=== PATIENT | female | born 1945 | race Caucasian/White ===

== ENCOUNTER → 2016-10-24 | Outpatient (CLI) | payer MEDICARE, BC ==
[~2016-10-24] MED LIST: ALBU1.25 NEB; ALBU2.5V NPPB; ALBU8.5H3 INH; ALBU90AE INH; AMLO5TAB2 PO; ASPI-515 PO; ATEN100T PO; ATEN25TA PO; ATEN50TA41 PO; AZIT500T PO; CEFD300C37 PO; CITA20TA9 PO; DOXY100T PO; FLUT1BLS INH; HYDR12.58 PO; HYDR25TA6 PO; IPRA3AMP NPPB; METO50TA82 PO; PANT40TA3 PO; PRED10TA PO; PRED5TAB PO; REGADENOSON 0.4 MG/5 ML SYRINGE ONE; TIOT18CA INH; TRAZ100T15 PO
== END | disposition home or self-care (01) ==
LOC: CFH 08:13
PROVIDERS: ATTEND Internal Medicine Cardiovascular Disease
DX: R94.31 Abnormal electrocardiogram [ECG] [EKG] (principal); R06.02 Shortness of breath
CPT/HCPCS: 78452; 93017; A9502; J2785

== ENCOUNTER 2016-11-10 22:17 | Inpatient (IN) | payer MEDICARE, BC ==
[~2016-11-10] VITALS: Ht 162.6 cm; Wt 95.8 kg
[~2016-11-10 22:17] MED LIST changes: -REGADENOSON 0.4 MG/5 ML SYRINGE ONE
[2016-11-10] MEDS ORDERED: IPRATROPIUM 0.5 MG/2.5 ML INHA NPPB SCH (22:30)
[2016-11-10] MEDS ORDERED: ALBUTEROL 0.5%, 20ML NPPB SCH (22:30)
[2016-11-10] MEDS ORDERED: SODIUM CHLORIDE FLUSH 10ML SYR IVF ONE (22:30)
[2016-11-10] MEDS ORDERED: PLEASE ENTER HEIGHT AND WEIGHT MC SCH (22:30)
[2016-11-10] MEDS ORDERED: ONDANSETRON 2MG/ML, 2ML IVP ONE (22:30)
[2016-11-10] MEDS ORDERED: NITROGLYCERIN OINT 2%, 1GM TP ONE ×2 (22:30→22:42)
[2016-11-10] MEDS ORDERED: methylPREDNISolone SOD SUCC 125 MG/2 ML IVP ONE (22:30)
[2016-11-10] MEDS ORDERED: PANT40TA5 PO (22:40)
[2016-11-10] MEDS ORDERED: [UNRECOGNIZED DRUG - OTHER] INH (22:40)
[2016-11-10] MEDS ORDERED: LOSA50TA6 PO (22:40)
[2016-11-10] MEDS ORDERED: ALBUTEROL 0.5%, 20ML ONE (22:41)
[2016-11-10] MEDS ORDERED: ONDANSETRON 2MG/ML, 2ML ONE (22:42)
[2016-11-10] MEDS ORDERED: methylPREDNISolone SOD SUCC 125 MG/2 ML ONE (22:42)
[2016-11-10 22:54] LABS: ABG COLLECTION SITE RIGHT RADIAL; COLLATERAL CIRCULATION TESTING NORMAL
[2016-11-10 23:12] LABS: ASPARTATE AMINO TRANSFERASE 17 U/L (15-37); BLOOD UREA NITROGEN 17 mg/dL (7-18)
[2016-11-10] MEDS ORDERED: CEFTRIAXONE PMX 1GM/50ML 50 ML ONE (23:15)
[2016-11-10 23:20] LABS: IS PT STATUS REG ER OR PRE ER? YES
[2016-11-10] MEDS ORDERED: CEFTRIAXONE PMX 1GM/50ML 50 ML IV ONE (23:30)
[2016-11-10] MEDS ORDERED: AZITHROMYCIN 500 MG in SODIUM CHLORIDE 0.9% 250 ML IVPB ONE (23:30)
[2016-11-10] MEDS ORDERED: SODIUM CHLORIDE 0.9% 1,000ML IVBOLUS ONE (23:30)
[2016-11-11] MEDS: ALBUTEROL/IPRATROPIUM 2.5MG/0.5MG, 3 ML NPPB SCH ×6 (01:30→22:01)
[2016-11-11] MEDS ORDERED: ALBUTEROL/IPRATROPIUM 2.5MG/0.5MG, 3 ML NPPB PRN (01:30)
[2016-11-11 01:57] VITALS: BP 165/57
[2016-11-11] MEDS: ENOXAPARIN 40 MG/0.4 ML SQ SCH (03:08)
[2016-11-11] MEDS: methylPREDNISolone SOD SUCC 125 MG/2 ML IVPush SCH ×4 (03:08→18:45)
[2016-11-11 04:21] LABS: ABG COLLECTION SITE RIGHT RADIAL; COLLATERAL CIRCULATION TESTING NORMAL
[2016-11-11 04:33] LABS: BLOOD UREA NITROGEN 19 mg/dL (7-18)
[2016-11-11 04:37] LABS: ASPARTATE AMINO TRANSFERASE 14 U/L (15-37)
[2016-11-11 04:48] VITALS: BP 110/43
[2016-11-11 04:54] LABS: IS PT STATUS REG ER OR PRE ER? NO
[2016-11-11] MEDS: METOPROLOL TARTRATE 50 MG TABLET PO SCH ×2 (06:08→17:47)
[2016-11-11] MEDS: ASPIRIN 81 MG TABLET EC PO SCH (09:21)
[2016-11-11] MEDS: PANTOPROZOLE 40MG TABLET PO SCH (09:21)
[2016-11-11] MEDS: LOSARTAN 50MG TABLET PO SCH (09:21)
[2016-11-11] MEDS: AMLODIPINE 5 MG TABLET PO SCH ×2 (09:21→20:24)
[2016-11-11 10:18] LABS: IS PT STATUS REG ER OR PRE ER? NO
[2016-11-11] MEDS ORDERED: FURO-92 PO (12:20)
[2016-11-11] MEDS ORDERED: POTA10TA5 PO (12:32)
[2016-11-11] MEDS: DOXYCYCLINE 100 MG in DEXTROSE 5% 250 ML IV SCH (13:13)
[2016-11-11] MEDS: CITALOPRAM 20 MG TABLET PO SCH (20:24)
[2016-11-11] MEDS: TRAZODONE 100MG TABLET PO SCH (20:30)
[2016-11-12] MEDS: DOXYCYCLINE 100 MG in DEXTROSE 5% 250 ML IV SCH ×2 (01:44→17:21)
[2016-11-12] MEDS: methylPREDNISolone SOD SUCC 125 MG/2 ML IVPush SCH ×2 (01:44→06:24)
[2016-11-12] MEDS: ENOXAPARIN 40 MG/0.4 ML SQ SCH (01:44)
[2016-11-12] MEDS: ALBUTEROL/IPRATROPIUM 2.5MG/0.5MG, 3 ML NPPB SCH ×6 (03:15→22:15)
[2016-11-12 04:00] VITALS: BP 129/56
[2016-11-12] MEDS: METOPROLOL TARTRATE 50 MG TABLET PO SCH ×2 (06:24→21:14)
[2016-11-12] MEDS: PANTOPROZOLE 40MG TABLET PO SCH (08:01)
[2016-11-12] MEDS: AMLODIPINE 5 MG TABLET PO SCH ×2 (08:01→22:44)
[2016-11-12] MEDS: LOSARTAN 50MG TABLET PO SCH (08:01)
[2016-11-12] MEDS: GUAIFENESIN 200 MG TABLET PO PRN (08:01)
[2016-11-12] MEDS: ASPIRIN 81 MG TABLET EC PO SCH (08:02)
[2016-11-12] MEDS: POTASSIUM CHLORIDE 10 MEQ TABLET.ER PO SCH (09:29)
[2016-11-12] MEDS: FUROSEMIDE 40 MG TABLET PO SCH (09:29)
[2016-11-12 14:39] VITALS: BP 146/70
[2016-11-12] MEDS: methylPREDNISolone SOD SUCC 40 MG/ML IVPush SCH ×2 (17:21→23:32)
[2016-11-12 18:43] VITALS: BP 151/66
[2016-11-12 22:41] VITALS: BP 154/76
[2016-11-12] MEDS: TRAZODONE 100MG TABLET PO SCH (22:44)
[2016-11-12] MEDS: CITALOPRAM 20 MG TABLET PO SCH (22:44)
[2016-11-13] MEDS: ALBUTEROL/IPRATROPIUM 2.5MG/0.5MG, 3 ML NPPB SCH ×6 (02:00→22:45)
[2016-11-13 02:04] VITALS: BP 149/74
[2016-11-13] MEDS: DOXYCYCLINE 100 MG in DEXTROSE 5% 250 ML IV SCH ×2 (04:17→16:07)
[2016-11-13] MEDS: ENOXAPARIN 40 MG/0.4 ML SQ SCH (04:18)
[2016-11-13 05:52] VITALS: BP 147/80
[2016-11-13] MEDS: METOPROLOL TARTRATE 50 MG TABLET PO SCH ×2 (05:54→18:06)
[2016-11-13 06:02] LABS: BLOOD UREA NITROGEN 23 mg/dL (7-18)
[2016-11-13 07:53] VITALS: BP 154/74
[2016-11-13] MEDS: methylPREDNISolone SOD SUCC 40 MG/ML IVPush SCH (09:14)
[2016-11-13] MEDS: FUROSEMIDE 40 MG TABLET PO SCH (09:26)
[2016-11-13] MEDS: POTASSIUM CHLORIDE 10 MEQ TABLET.ER PO SCH (09:26)
[2016-11-13] MEDS: ASPIRIN 81 MG TABLET EC PO SCH (09:26)
[2016-11-13] MEDS: LOSARTAN 50MG TABLET PO SCH (09:28)
[2016-11-13] MEDS: PANTOPROZOLE 40MG TABLET PO SCH (09:28)
[2016-11-13] MEDS: AMLODIPINE 5 MG TABLET PO SCH ×2 (09:28→20:08)
[2016-11-13] MEDS: GUAIFENESIN/COD200MG-20MG/10ML LIQUID PO PRN ×3 (13:22→22:05)
[2016-11-13 13:55] VITALS: BP 156/73
[2016-11-13] MEDS: CITALOPRAM 20 MG TABLET PO SCH (20:08)
[2016-11-13] MEDS: TRAZODONE 100MG TABLET PO SCH (20:08)
[2016-11-14] MEDS: ALBUTEROL/IPRATROPIUM 2.5MG/0.5MG, 3 ML NPPB SCH ×6 (02:15→22:00)
[2016-11-14] MEDS: DOXYCYCLINE 100 MG in DEXTROSE 5% 250 ML IV SCH ×2 (02:30→15:52)
[2016-11-14] MEDS: GUAIFENESIN/COD200MG-20MG/10ML LIQUID PO PRN ×2 (02:30→21:11)
[2016-11-14] MEDS: ENOXAPARIN 40 MG/0.4 ML SQ SCH (02:30)
[2016-11-14 02:35] VITALS: BP 136/75
[2016-11-14] MEDS: METOPROLOL TARTRATE 50 MG TABLET PO SCH ×2 (05:49→18:08)
[2016-11-14 07:05] VITALS: BP 148/76
[2016-11-14] MEDS: POTASSIUM CHLORIDE 10 MEQ TABLET.ER PO SCH (09:30)
[2016-11-14] MEDS: ASPIRIN 81 MG TABLET EC PO SCH (09:30)
[2016-11-14] MEDS: LOSARTAN 50MG TABLET PO SCH (09:30)
[2016-11-14] MEDS: AMLODIPINE 5 MG TABLET PO SCH ×2 (09:31→21:11)
[2016-11-14] MEDS: FUROSEMIDE 40 MG TABLET PO SCH (09:31)
[2016-11-14] MEDS: PANTOPROZOLE 40MG TABLET PO SCH (09:32)
[2016-11-14 12:55] VITALS: BP 137/79
[2016-11-14] MEDS: CITALOPRAM 20 MG TABLET PO SCH (21:11)
[2016-11-14] MEDS: TRAZODONE 100MG TABLET PO SCH (21:11)
[2016-11-15] MEDS: ALBUTEROL/IPRATROPIUM 2.5MG/0.5MG, 3 ML NPPB SCH ×6 (02:00→22:40)
[2016-11-15 03:27] VITALS: BP 142/65
[2016-11-15] MEDS: DOXYCYCLINE 100 MG in DEXTROSE 5% 250 ML IV SCH ×2 (03:42→16:10)
[2016-11-15] MEDS: ENOXAPARIN 40 MG/0.4 ML SQ SCH (03:43)
[2016-11-15] MEDS: GUAIFENESIN/COD200MG-20MG/10ML LIQUID PO PRN ×2 (05:05→21:40)
[2016-11-15] MEDS: METOPROLOL TARTRATE 50 MG TABLET PO SCH ×2 (05:14→18:48)
[2016-11-15 08:00] VITALS: BP 140/80
[2016-11-15] MEDS: AMLODIPINE 5 MG TABLET PO SCH ×2 (09:27→20:54)
[2016-11-15] MEDS: POTASSIUM CHLORIDE 10 MEQ TABLET.ER PO SCH (09:27)
[2016-11-15] MEDS: LOSARTAN 50MG TABLET PO SCH (09:27)
[2016-11-15] MEDS: ASPIRIN 81 MG TABLET EC PO SCH (09:27)
[2016-11-15] MEDS: GUAIFENESIN 200 MG TABLET PO PRN (09:27)
[2016-11-15] MEDS: FUROSEMIDE 40 MG TABLET PO SCH (09:27)
[2016-11-15] MEDS: PANTOPROZOLE 40MG TABLET PO SCH (09:27)
[2016-11-15 19:12] VITALS: BP 148/68
[2016-11-15] MEDS: TRAZODONE 100MG TABLET PO SCH (20:54)
[2016-11-15] MEDS: CITALOPRAM 20 MG TABLET PO SCH (20:54)
[2016-11-16] MEDS: DOXYCYCLINE 100 MG in DEXTROSE 5% 250 ML IV SCH (02:59)
[2016-11-16 04:00] VITALS: BP 138/84
[2016-11-16] MEDS: METOPROLOL TARTRATE 50 MG TABLET PO SCH (05:47)
[2016-11-16 06:50] VITALS: BP 161/77
[2016-11-16] MEDS: LOSARTAN 50MG TABLET PO SCH (07:49)
[2016-11-16] MEDS: AMLODIPINE 5 MG TABLET PO SCH (07:49)
[2016-11-16] MEDS: PANTOPROZOLE 40MG TABLET PO SCH (07:49)
[2016-11-16] MEDS: POTASSIUM CHLORIDE 10 MEQ TABLET.ER PO SCH (07:50)
[2016-11-16] MEDS: ASPIRIN 81 MG TABLET EC PO SCH (07:50)
[2016-11-16] MEDS: FUROSEMIDE 40 MG TABLET PO SCH (07:50)
[2016-11-16] MEDS: ALBUTEROL/IPRATROPIUM 2.5MG/0.5MG, 3 ML NPPB SCH ×2 (08:00→11:50)
[2016-11-16] MEDS ORDERED: DOXYCYCLINE 100MG TABLET PO SCH (09:00)
[2016-11-16] MEDS: ENOXAPARIN 40 MG/0.4 ML SQ SCH (10:01)
[2016-11-16] MEDS ORDERED: DOXY100T PO (11:21)
[2016-11-16] MEDS ORDERED: ALPR0.25 PO (15:10)
[2016-11-16] MEDS ORDERED: PRED10TA PO (15:13)
== END 2016-11-16 15:30 | disposition home health service (06) | DRG 189 ==
LOC: ED 22:46 → EDIP 23:28 → CCU 11-11 01:43 → 4WST 11-12 14:47 → DCLOUNGE 11-16 14:30
PROVIDERS: ADMIT Internal Medicine; ATTEND Internal Medicine
PROC: 5A09357 Assistance with Respiratory Ventilation, Less than 24 Consecutive Hours, Continuous Positive Airway Pressure (ICD-10-PCS; principal; 2016-11-10)
DX: J96.21 Acute and chronic respiratory failure with hypoxia (principal); J44.1 Chronic obstructive pulmonary disease with (acute) exacerbation; E87.2 Acidosis; J44.0 Chronic obstructive pulmonary disease with (acute) lower respiratory infection; J20.9 Acute bronchitis, unspecified; J96.22 Acute and chronic respiratory failure with hypercapnia; E66.9 Obesity, unspecified; F17.200 Nicotine dependence, unspecified, uncomplicated; F32.9 Major depressive disorder, single episode, unspecified; F51.04 Psychophysiologic insomnia; I10 Essential (primary) hypertension; Z51.5 Encounter for palliative care; Z68.36 Body mass index [BMI] 36.0-36.9, adult; Z83.3 Family history of diabetes mellitus; Z99.81 Dependence on supplemental oxygen; Z87.01 Personal history of pneumonia (recurrent)
CPT/HCPCS: 36415; 36600; 71010; 80048; 80053; 82803; 83605; 83880; 84484; 85025; 85610; 85730; 87040; 87081; 93005; 94640; 94644; 96365; 96375; J0456; J0696; J1650; J2405; J7060; J7620; J2920; J2930; J7030; J7050; J7512

== ENCOUNTER 2017-01-06 17:39 | Emergency (ER) | payer MEDICARE, BC ==
[~2017-01-06] VITALS: Ht 162.6 cm; Wt 90.0 kg
[~2017-01-06 17:39] MED LIST changes: -ALBU8.5H3 INH; +ALBU8.5H8 INH; +ALPR0.25 PO; +FURO-92 PO; +LOSA50TA6 PO; +PANT40TA5 PO; +POTA10TA5 PO; +[UNRECOGNIZED DRUG - OTHER] INH
[2017-01-06] MEDS ORDERED: ALBUTEROL/IPRATROPIUM 2.5MG/0.5MG, 3 ML ONE (17:47)
[2017-01-06] MEDS: ALBUTEROL/IPRATROPIUM 2.5MG/0.5MG, 3 ML NPPB SCH (17:51)
[2017-01-06 18:00] LABS: HEMATOCRIT 40.7 % (34.6-47.8); HEMOGLOBIN 13.3 g/dL (11.7-16.4); WHITE BLOOD COUNT 10.8 x10^3/uL (3.4-10)
[2017-01-06] MEDS ORDERED: SODIUM CHLORIDE FLUSH 10ML SYR IVF ONE (18:00)
[2017-01-06] MEDS ORDERED: methylPREDNISolone SOD SUCC 125 MG/2 ML IVP ONE (18:00)
[2017-01-06] MEDS ORDERED: methylPREDNISolone SOD SUCC 125 MG/2 ML ONE (18:02)
[2017-01-06 18:14] LABS: BLOOD UREA NITROGEN 15 mg/dL (7-18)
[2017-01-06 18:19] LABS: ASPARTATE AMINO TRANSFERASE 13 U/L (15-37); IS PT STATUS REG ER OR PRE ER? YES
[2017-01-06 18:57] VITALS: BP 128/87
== END 2017-01-06 19:26 | disposition home or self-care (01) ==
LOC: ED 19:20
DX: J44.1 Chronic obstructive pulmonary disease with (acute) exacerbation (principal); I10 Essential (primary) hypertension; Z79.82 Long term (current) use of aspirin
CPT/HCPCS: 36415; 71010; 80053; 83880; 84484; 85025; 93005; 94640; 96374; 99285; J2930; J7620

== ENCOUNTER 2017-01-21 09:15 | Inpatient (IN) | payer MEDICARE, BC ==
[~2017-01-21] VITALS: Ht 162.6 cm; Wt 94.9 kg
[2017-01-21] MEDS: ALBUTEROL/IPRATROPIUM 2.5MG/0.5MG, 3 ML NPPB SCH ×5 (10:06→23:10)
[2017-01-21] MEDS ORDERED: ALBUTEROL/IPRATROPIUM 2.5MG/0.5MG, 3 ML ONE ×2 (10:06→14:41)
[2017-01-21] MEDS ORDERED: methylPREDNISolone SOD SUCC 125 MG/2 ML ONE (10:22)
[2017-01-21 10:25] LABS: HEMATOCRIT 39.7 % (34.6-47.8); HEMOGLOBIN 13.2 g/dL (11.7-16.4); WHITE BLOOD COUNT 10.3 x10^3/uL (3.4-10)
[2017-01-21] MEDS ORDERED: methylPREDNISolone SOD SUCC 125 MG/2 ML IVP ONE (10:30)
[2017-01-21] MEDS ORDERED: SODIUM CHLORIDE FLUSH 10ML SYR IVF ONE (10:30)
[2017-01-21] MEDS ORDERED: MAGNESIUM SULFATE PMX 2GM/50ML 50 ML IV ONE (10:30)
[2017-01-21 10:36] LABS: BLOOD UREA NITROGEN 12 mg/dL (7-18)
[2017-01-21 10:42] LABS: IS PT STATUS REG ER OR PRE ER? YES
[2017-01-21 15:16] VITALS: BP 146/72
[2017-01-21] MEDS ORDERED: HYDROcodone/APAP 5/325 TABLET PO PRN (16:30)
[2017-01-21] MEDS ORDERED: morphine SULFATE 10 MG/ML, 1ML IVPush PRN (16:30)
[2017-01-21] MEDS ORDERED: ONDANSETRON 2MG/ML, 2ML IVPush PRN (16:30)
[2017-01-21] MEDS ORDERED: hydrALAzine 20 MG/ML, 1ML IVPush PRN (16:30)
[2017-01-21] MEDS ORDERED: ACETAMINOPHEN 325 MG TABLET PO PRN (16:30)
[2017-01-21] MEDS: INSULIN ASPART 100 UNITS/ML, PEN SQ-INSULIN SCH ×2 (16:30→20:58)
[2017-01-21] MEDS: ENOXAPARIN 40 MG/0.4 ML SQ SCH (17:38)
[2017-01-21] MEDS: CEFTRIAXONE PMX 2GM/50ML 50 ML IV SCH (17:38)
[2017-01-21] MEDS: METOPROLOL TARTRATE 50 MG TABLET PO SCH (18:33)
[2017-01-21] MEDS: methylPREDNISolone SOD SUCC 125 MG/2 ML IVPush SCH (18:33)
[2017-01-21] MEDS: FUROSEMIDE 40 MG/4 ML IV SCH (18:33)
[2017-01-21 18:38] VITALS: BP 161/75
[2017-01-21] MEDS: TRAZODONE 100MG TABLET PO SCH (20:55)
[2017-01-21] MEDS: DOXYCYCLINE 100MG TABLET PO SCH (20:55)
[2017-01-21] MEDS: CITALOPRAM 20 MG TABLET PO SCH (20:55)
[2017-01-21] MEDS ORDERED: AMLODIPINE 5 MG TABLET PO SCH (21:00)
[2017-01-22] MEDS: methylPREDNISolone SOD SUCC 125 MG/2 ML IVPush SCH ×4 (00:23→22:57)
[2017-01-22 00:52] VITALS: BP 158/69
[2017-01-22] MEDS: ALBUTEROL/IPRATROPIUM 2.5MG/0.5MG, 3 ML NPPB SCH ×6 (02:44→22:40)
[2017-01-22] MEDS: METOPROLOL TARTRATE 50 MG TABLET PO SCH ×2 (05:19→18:29)
[2017-01-22 05:40] LABS: BLOOD UREA NITROGEN 16 mg/dL (7-18)
[2017-01-22 07:12] VITALS: BP 150/72
[2017-01-22] MEDS: INSULIN ASPART 100 UNITS/ML, PEN SQ-INSULIN SCH ×4 (08:37→21:00)
[2017-01-22] MEDS: FUROSEMIDE 40 MG/4 ML IV SCH (08:41)
[2017-01-22] MEDS: ASPIRIN 81 MG TABLET EC PO SCH (08:43)
[2017-01-22] MEDS: LOSARTAN 50MG TABLET PO SCH (08:43)
[2017-01-22] MEDS: PANTOPROZOLE 40MG TABLET PO SCH (08:44)
[2017-01-22] MEDS: DOXYCYCLINE 100MG TABLET PO SCH ×2 (08:44→22:58)
[2017-01-22] MEDS: POTASSIUM CHLORIDE 20 MEQ TAB.ER.PRT PO SCH (08:44)
[2017-01-22] MEDS ORDERED: FUROSEMIDE 40 MG TABLET PO SCH (09:00)
[2017-01-22 12:10] VITALS: BP 133/65
[2017-01-22] MEDS: CEFTRIAXONE PMX 2GM/50ML 50 ML IV SCH (17:11)
[2017-01-22] MEDS: ENOXAPARIN 40 MG/0.4 ML SQ SCH (17:12)
[2017-01-22] MEDS: FUROSEMIDE 40 MG TABLET PO SCH (18:30)
[2017-01-22 21:11] VITALS: BP 151/71
[2017-01-22] MEDS: TRAZODONE 100MG TABLET PO SCH (22:58)
[2017-01-22] MEDS: CITALOPRAM 20 MG TABLET PO SCH (22:58)
[2017-01-23] MEDS: ALBUTEROL/IPRATROPIUM 2.5MG/0.5MG, 3 ML NPPB SCH ×6 (02:20→23:40)
[2017-01-23 03:52] VITALS: BP 179/81
[2017-01-23] MEDS: methylPREDNISolone SOD SUCC 125 MG/2 ML IVPush SCH ×4 (04:02→22:40)
[2017-01-23 06:17] LABS: BLOOD UREA NITROGEN 27 mg/dL (7-18)
[2017-01-23 06:27] VITALS: BP 161/70
[2017-01-23] MEDS: METOPROLOL TARTRATE 50 MG TABLET PO SCH ×2 (06:27→18:37)
[2017-01-23 07:10] VITALS: BP 165/70
[2017-01-23] MEDS: FUROSEMIDE 40 MG TABLET PO SCH ×2 (08:10→17:18)
[2017-01-23] MEDS: LOSARTAN 50MG TABLET PO SCH (08:10)
[2017-01-23] MEDS: DOXYCYCLINE 100MG TABLET PO SCH ×2 (08:11→20:44)
[2017-01-23] MEDS: PANTOPROZOLE 40MG TABLET PO SCH (08:11)
[2017-01-23] MEDS: POTASSIUM CHLORIDE 20 MEQ TAB.ER.PRT PO SCH (08:11)
[2017-01-23] MEDS: ASPIRIN 81 MG TABLET EC PO SCH (08:11)
[2017-01-23] MEDS: INSULIN ASPART 100 UNITS/ML, PEN SQ-INSULIN SCH ×4 (08:18→20:49)
[2017-01-23 12:33] VITALS: BP 160/76
[2017-01-23] MEDS: ENOXAPARIN 40 MG/0.4 ML SQ SCH (17:18)
[2017-01-23] MEDS: CEFTRIAXONE PMX 2GM/50ML 50 ML IV SCH (17:18)
[2017-01-23 18:30] VITALS: BP 147/75
[2017-01-23] MEDS: TRAZODONE 100MG TABLET PO SCH (20:44)
[2017-01-23] MEDS: CITALOPRAM 20 MG TABLET PO SCH (20:44)
[2017-01-24] MEDS: ALBUTEROL/IPRATROPIUM 2.5MG/0.5MG, 3 ML NPPB SCH ×6 (03:15→22:25)
[2017-01-24 03:22] VITALS: BP 138/62
[2017-01-24] MEDS: methylPREDNISolone SOD SUCC 125 MG/2 ML IVPush SCH ×4 (05:02→22:36)
[2017-01-24] MEDS: METOPROLOL TARTRATE 50 MG TABLET PO SCH ×2 (05:03→17:41)
[2017-01-24] MEDS: INSULIN ASPART 100 UNITS/ML, PEN SQ-INSULIN SCH ×4 (07:00→20:56)
[2017-01-24 07:15] VITALS: BP 167/80
[2017-01-24] MEDS: FUROSEMIDE 40 MG TABLET PO SCH ×2 (09:11→17:41)
[2017-01-24] MEDS: LOSARTAN 50MG TABLET PO SCH (09:12)
[2017-01-24] MEDS: ASPIRIN 81 MG TABLET EC PO SCH (09:12)
[2017-01-24] MEDS: POTASSIUM CHLORIDE 20 MEQ TAB.ER.PRT PO SCH (09:12)
[2017-01-24] MEDS: DOXYCYCLINE 100MG TABLET PO SCH ×2 (09:13→20:42)
[2017-01-24] MEDS: PANTOPROZOLE 40MG TABLET PO SCH (09:13)
[2017-01-24 12:25] VITALS: BP 163/73
[2017-01-24] MEDS: ENOXAPARIN 40 MG/0.4 ML SQ SCH (17:35)
[2017-01-24] MEDS: CEFTRIAXONE PMX 2GM/50ML 50 ML IV SCH (17:40)
[2017-01-24 19:42] VITALS: BP 159/70
[2017-01-24] MEDS: TRAZODONE 100MG TABLET PO SCH (20:42)
[2017-01-24] MEDS: CITALOPRAM 20 MG TABLET PO SCH (20:42)
[2017-01-25] MEDS: ALBUTEROL/IPRATROPIUM 2.5MG/0.5MG, 3 ML NPPB SCH ×6 (03:00→20:07)
[2017-01-25 04:10] VITALS: BP 151/73
[2017-01-25] MEDS: methylPREDNISolone SOD SUCC 125 MG/2 ML IVPush SCH ×4 (05:04→22:10)
[2017-01-25] MEDS: METOPROLOL TARTRATE 50 MG TABLET PO SCH ×2 (05:04→18:00)
[2017-01-25 05:41] LABS: BLOOD UREA NITROGEN 38 mg/dL (7-18)
[2017-01-25] MEDS: INSULIN ASPART 100 UNITS/ML, PEN SQ-INSULIN SCH ×4 (07:00→22:07)
[2017-01-25 07:06] VITALS: BP 170/76
[2017-01-25] MEDS: FUROSEMIDE 40 MG TABLET PO SCH ×2 (09:27→18:08)
[2017-01-25] MEDS: LOSARTAN 50MG TABLET PO SCH (09:28)
[2017-01-25] MEDS: PANTOPROZOLE 40MG TABLET PO SCH (09:28)
[2017-01-25] MEDS: POTASSIUM CHLORIDE 20 MEQ TAB.ER.PRT PO SCH (09:28)
[2017-01-25] MEDS: DOXYCYCLINE 100MG TABLET PO SCH ×2 (09:28→22:07)
[2017-01-25] MEDS: ASPIRIN 81 MG TABLET EC PO SCH (09:28)
[2017-01-25] MEDS: GUAIFENESIN 200 MG TABLET PO SCH ×2 (13:56→22:07)
[2017-01-25 15:07] VITALS: BP 167/74
[2017-01-25] MEDS: ENOXAPARIN 40 MG/0.4 ML SQ SCH (18:08)
[2017-01-25] MEDS: CEFTRIAXONE PMX 2GM/50ML 50 ML IV SCH (18:08)
[2017-01-25 20:45] VITALS: BP 163/73
[2017-01-25] MEDS: TRAZODONE 100MG TABLET PO SCH (22:07)
[2017-01-25] MEDS: CITALOPRAM 20 MG TABLET PO SCH (22:07)
[2017-01-26] MEDS: ALBUTEROL/IPRATROPIUM 2.5MG/0.5MG, 3 ML NPPB SCH ×7 (02:56→23:00)
[2017-01-26 03:31] VITALS: BP 156/76
[2017-01-26] MEDS: methylPREDNISolone SOD SUCC 125 MG/2 ML IVPush SCH ×4 (05:20→22:10)
[2017-01-26] MEDS: METOPROLOL TARTRATE 50 MG TABLET PO SCH ×2 (05:20→18:08)
[2017-01-26] MEDS: INSULIN ASPART 100 UNITS/ML, PEN SQ-INSULIN SCH ×4 (07:00→20:56)
[2017-01-26 07:31] VITALS: BP 179/82
[2017-01-26] MEDS: FUROSEMIDE 40 MG TABLET PO SCH ×2 (08:20→16:38)
[2017-01-26] MEDS: LOSARTAN 50MG TABLET PO SCH (08:20)
[2017-01-26] MEDS: DOXYCYCLINE 100MG TABLET PO SCH ×2 (08:20→20:41)
[2017-01-26] MEDS: POTASSIUM CHLORIDE 20 MEQ TAB.ER.PRT PO SCH (08:20)
[2017-01-26] MEDS: PANTOPROZOLE 40MG TABLET PO SCH (08:20)
[2017-01-26] MEDS: ASPIRIN 81 MG TABLET EC PO SCH (08:21)
[2017-01-26] MEDS: GUAIFENESIN 200 MG TABLET PO SCH ×3 (08:21→20:41)
[2017-01-26 13:46] VITALS: BP 154/81
[2017-01-26] MEDS: ENOXAPARIN 40 MG/0.4 ML SQ SCH (16:39)
[2017-01-26] MEDS: CEFTRIAXONE PMX 2GM/50ML 50 ML IV SCH (16:39)
[2017-01-26 19:53] VITALS: BP 138/74
[2017-01-26] MEDS: CITALOPRAM 20 MG TABLET PO SCH (20:41)
[2017-01-26] MEDS: TRAZODONE 100MG TABLET PO SCH (22:10)
[2017-01-27 00:58] VITALS: BP 159/84
[2017-01-27] MEDS ORDERED: ACETAMINOPHEN 325 MG TABLET PO PRN (01:30)
[2017-01-27] MEDS ORDERED: HYDROcodone/APAP 5/325 TABLET PO PRN (01:30)
[2017-01-27] MEDS ORDERED: morphine SULFATE 10 MG/ML, 1ML IVPush PRN (01:30)
[2017-01-27] MEDS ORDERED: ONDANSETRON 2MG/ML, 2ML IVPush PRN (01:30)
[2017-01-27] MEDS: ALBUTEROL/IPRATROPIUM 2.5MG/0.5MG, 3 ML NPPB SCH ×5 (02:00→15:02)
[2017-01-27] MEDS ORDERED: ALBUTEROL/IPRATROPIUM 2.5MG/0.5MG, 3 ML ONE (04:15)
[2017-01-27] MEDS: methylPREDNISolone SOD SUCC 125 MG/2 ML IVPush SCH ×2 (05:02→12:52)
[2017-01-27] MEDS: METOPROLOL TARTRATE 50 MG TABLET PO SCH (05:02)
[2017-01-27 06:52] VITALS: BP 182/78
[2017-01-27] MEDS: ASPIRIN 81 MG TABLET EC PO SCH (08:10)
[2017-01-27] MEDS: FUROSEMIDE 40 MG TABLET PO SCH (08:10)
[2017-01-27] MEDS: POTASSIUM CHLORIDE 20 MEQ TAB.ER.PRT PO SCH (08:10)
[2017-01-27] MEDS: LOSARTAN 50MG TABLET PO SCH (08:11)
[2017-01-27] MEDS: GUAIFENESIN 200 MG TABLET PO SCH (08:11)
[2017-01-27] MEDS: DOXYCYCLINE 100MG TABLET PO SCH (08:12)
[2017-01-27] MEDS: INSULIN ASPART 100 UNITS/ML, PEN SQ-INSULIN SCH ×2 (08:12→12:30)
[2017-01-27] MEDS: PANTOPROZOLE 40MG TABLET PO SCH (08:12)
[2017-01-27] MEDS ORDERED: TRAM50TA2 PO (11:48)
[2017-01-27] MEDS ORDERED: GUAI200T3 PO (11:48)
[2017-01-27] MEDS ORDERED: BUDE90AE INH (11:48)
[2017-01-27] MEDS ORDERED: PRED10TA PO (11:48)
[2017-01-27] MEDS ORDERED: DOXY100T PO (11:48)
[2017-01-27] MEDS ORDERED: CEFD300C37 PO (11:48)
[2017-01-27] MEDS ORDERED: POTA20TA6 PO (11:48)
[2017-01-27] MEDS ORDERED: FURO40TA6 PO (11:48)
[2017-01-27 12:30] VITALS: BP 159/74
== END 2017-01-27 15:00 | disposition home or self-care (01) | DRG 291 ==
LOC: ED 12:06 → EDIP 12:10 → 4EST 14:54
PROVIDERS: ADMIT Internal Medicine; ATTEND Internal Medicine
DX: I11.0 Hypertensive heart disease with heart failure (principal); J96.20 Acute and chronic respiratory failure, unspecified whether with hypoxia or hypercapnia; Z99.81 Dependence on supplemental oxygen; J44.1 Chronic obstructive pulmonary disease with (acute) exacerbation; I50.31 Acute diastolic (congestive) heart failure; E66.9 Obesity, unspecified; F32.9 Major depressive disorder, single episode, unspecified; Z87.891 Personal history of nicotine dependence; Z90.49 Acquired absence of other specified parts of digestive tract; Z90.710 Acquired absence of both cervix and uterus; Z68.35 Body mass index [BMI] 35.0-35.9, adult
CPT/HCPCS: 36415; 71010; 80048; 82040; 82962; 83036; 83880; 84484; 85025; 93005; 93306; 94640; 96365; 96366; 96375; J0696; J1650; J1815; J1940; J7620; J0360; J2930; J3475

== ENCOUNTER → 2017-04-18 | Outpatient (CLI) | payer MEDICARE, BC ==
[~2017-04-18] MED LIST changes: +BUDE90AE INH; +FURO40TA6 PO; +GUAI200T3 PO; +POTA20TA6 PO; +TRAM50TA2 PO
== END | disposition home or self-care (01) ==
LOC: CFH 15:55
PROVIDERS: ATTEND Internal Medicine
DX: R05 Cough (principal)
CPT/HCPCS: 71020

== ENCOUNTER → 2018-06-27 | Outpatient (CLI) | payer MEDICARE, BC ==
[~2018-06-27] MED LIST changes: +AMLO-150 PO; -AMLO5TAB2 PO; -HYDR12.58 PO; +HYDROCHLOROTH12.5 MG PO; -IPRA3AMP NPPB; +IPRA3AMP30 NPPB; +LOSA50TA14 PO; -LOSA50TA6 PO; +OMNIPAQUE 350 MG/ML, 75ML BOTTLE ONE; +TRAZ-137 PO; -TRAZ100T15 PO
== END | disposition home or self-care (01) ==
LOC: CFH 08:59
PROVIDERS: ATTEND Nurse Practitioner Family
DX: J43.2 Centrilobular emphysema (principal)
CPT/HCPCS: 71260; Q9967

== ENCOUNTER → 2018-07-16 | Outpatient (CLI) | payer MEDICARE, BC ==
[~2018-07-16] MED LIST changes: -OMNIPAQUE 350 MG/ML, 75ML BOTTLE ONE
== END | disposition home or self-care (01) ==
LOC: PETCFH 12:49
PROVIDERS: ATTEND Nurse Practitioner Family
DX: J43.9 Emphysema, unspecified (principal); I25.10 Atherosclerotic heart disease of native coronary artery without angina pectoris; K57.30 Diverticulosis of large intestine without perforation or abscess without bleeding; R91.1 Solitary pulmonary nodule; J98.4 Other disorders of lung
CPT/HCPCS: 78815; A9552

== ENCOUNTER → 2018-08-08 | Outpatient (CLI) | payer MEDICARE, BC ==
[~2018-08-08] MED LIST changes: +ALBU18HF INH; +FURO20TA3 PO; +HYDR-3343 PO; +POTA10CA PO
== END | disposition home or self-care (01) ==
LOC: STAR 09:28
PROVIDERS: ATTEND Internal Medicine
DX: Z01.818 Encounter for other preprocedural examination (principal); R91.1 Solitary pulmonary nodule
CPT/HCPCS: 93005

== ENCOUNTER → 2018-08-11 | Outpatient (CLI) | payer MEDICARE, BC | END | disposition home or self-care (01) | LOC: RAD 14:26 | PROVIDERS: ATTEND Nurse Practitioner | DX: R91.1 Solitary pulmonary nodule (principal); J98.4 Other disorders of lung | CPT/HCPCS: 71250 ==

== ENCOUNTER 2018-08-15 06:49 | Day surgery (SDC) | payer MEDICARE, BC ==
[2018-08-08 10:39] VITALS: BP 142/77
[~2018-08-15] VITALS: Ht 162.6 cm; Wt 87.9 kg
[2018-08-15] MEDS ORDERED: LACTATED RINGERS 1,000 ML IV SCH (07:19)
[2018-08-15] MEDS ORDERED: LIDOCAINE 2%, 6 ML JEL.PF.APP MM ONE (08:56)
[2018-08-15] MEDS ORDERED: FENTANYL PF 250 MCG/5ML ONE (08:58)
[2018-08-15] MEDS ORDERED: EPHEDRINE 50 MG/ML, 1ML ONE (09:00)
[2018-08-15] MEDS ORDERED: PHENYLEPHRINE 10 MG/ML ONE (09:00)
[2018-08-15] MEDS ORDERED: DEXAMETHASONE 4 MG/ML, 1ML ONE (10:31)
[2018-08-15] MEDS ORDERED: NEOSTIGMINE 1 MG/ML, 10ML ONE (10:31)
[2018-08-15] MEDS ORDERED: PROPOFOL 10 MG/ML, 20ML ONE (10:31)
[2018-08-15] MEDS ORDERED: ONDANSETRON 2MG/ML, 2ML ONE (10:31)
[2018-08-15] MEDS ORDERED: ROCURONIUM 10MG/ML,5ML ONE (10:31)
[2018-08-15] MEDS ORDERED: GLYCOPYRROLATE 0.2MG/1ML, 5ML ONE (10:31)
[2018-08-15] MEDS ORDERED: SUCCINYLCHOLINE 20 MG/ML, 10ML ONE (10:31)
[2018-08-15] MEDS ORDERED: FENTANYL PF 100 MCG/2ML ONE (10:50)
[2018-08-15] MEDS ORDERED: OXYcodone 5 MG/5 ML ORAL.SOL UDC ONE (10:50)
[2018-08-15] MEDS: FENTANYL PF 100 MCG/2ML IV PRN ×2 (10:54→11:03)
[2018-08-15] MEDS ORDERED: ALBUTEROL/IPRATROPIUM 2.5MG/0.5MG, 3 ML NPPB PRN (11:00)
[2018-08-15] MEDS ORDERED: hydrALAzine 20 MG/ML, 1ML IV PRN (11:00)
[2018-08-15] MEDS ORDERED: METOPROLOL 1 MG/ML, 5ML IV PRN (11:00)
[2018-08-15] MEDS ORDERED: ONDANSETRON 2MG/ML, 2ML IV PRN (11:00)
[2018-08-15] MEDS ORDERED: OXYcodone 5 MG/5 ML ORAL.SOL UDC PO PRN (11:00)
[2018-08-15] MEDS ORDERED: ACETAMINOPHEN 325 MG TABLET PO PRN (11:00)
== END 2018-08-15 12:45 | disposition home or self-care (01) ==
LOC: OUT 06:49
PROVIDERS: ATTEND Internal Medicine
DX: C34.11 Malignant neoplasm of upper lobe, right bronchus or lung (principal); J43.9 Emphysema, unspecified; K21.9 Gastro-esophageal reflux disease without esophagitis; F32.9 Major depressive disorder, single episode, unspecified; E66.9 Obesity, unspecified; Z68.33 Body mass index [BMI] 33.0-33.9, adult
CPT/HCPCS: 31627; 31628; 31629; 71045; 88112; 88172; 88173; 88177; 88305; 88341; 88342; A4648; J0330; J1100; J2370; J2405; J2704; J2710; J3010; J7120; 76001

== ENCOUNTER → 2018-08-21 | Outpatient (CLI) | payer MEDICARE, BC | END | disposition home or self-care (01) | LOC: ROC 08:58 | PROVIDERS: ATTEND Radiology Radiation Oncology | DX: C34.11 Malignant neoplasm of upper lobe, right bronchus or lung (principal) | CPT/HCPCS: G0463 ==

== ENCOUNTER → 2018-08-22 | Outpatient (CLI) | payer MEDICARE, BC ==
[~2018-08-22] MED LIST changes: +GADOBUTROL 7.5 MMOL/7.5 ML PFS ONE
== END | disposition home or self-care (01) ==
LOC: CFH 13:44
PROVIDERS: ATTEND Internal Medicine
DX: I67.82 Cerebral ischemia (principal); G31.9 Degenerative disease of nervous system, unspecified; C34.11 Malignant neoplasm of upper lobe, right bronchus or lung
CPT/HCPCS: 70553; 82565; A9585

== ENCOUNTER 2018-12-03 09:58 | Outpatient (CLI) | payer MEDICARE, BC | END 2018-12-03 23:59 | disposition home or self-care (01) | LOC: CFH 09:58 | PROVIDERS: ATTEND Radiology Radiation Oncology | DX: C34.91 Malignant neoplasm of unspecified part of right bronchus or lung (principal); I10 Essential (primary) hypertension; R91.1 Solitary pulmonary nodule | CPT/HCPCS: 71250 ==

== ENCOUNTER 2018-12-05 08:22 | Outpatient (CLI) | payer MEDICARE, BC ==
[~2018-12-05 08:22] MED LIST changes: -GADOBUTROL 7.5 MMOL/7.5 ML PFS ONE; -GUAI200T3 PO; +GUAI200T37 PO
== END 2018-12-05 23:59 | disposition home or self-care (01) ==
LOC: ROC 08:22
PROVIDERS: ATTEND Radiology Radiation Oncology
DX: C34.11 Malignant neoplasm of upper lobe, right bronchus or lung (principal)
CPT/HCPCS: G0463

== ENCOUNTER 2019-04-03 12:27 | Emergency (ER) | payer MEDICARE, BC ==
[~2019-04-03] VITALS: Ht 162.6 cm; Wt 87.0 kg
--- NOTE | 2019-04-03 13:02 | NUR ---
C/O RIGHT RIB PAIN AFTER REACHING FOR SOMETHING A COUPLE DAYS AGO AND FEELING LIKE SOMETHIN PULLED. PT FELT BETTER, THEN SHE PULLED IT AGAIN YESTERDAY AND INJURY IS BACK AND WORSE THAN BEFORE. DIFFICULT TO TAKE DEEP FULL BREATHS. HX COPD WITH OXYGEN AT 3L BASELINE. CONNECTED TO MONITOING. CALL LIGHT IN REACH. SPOUSE AT BEDSIDE. AWAITING ORDERS AT THIS TIME.
[2019-04-03] MEDS ORDERED: ONDANSETRON ODT 4 MG ONE (13:18)
[2019-04-03] MEDS ORDERED: HYDROcodone/APAP 5/325 TABLET ONE (13:19)
--- NOTE | 2019-04-03 13:21 | NUR ---
MEDS ADMINISTERS PER JUL. LAB AT BEDSIDE.
[2019-04-03 13:29] LABS: BASOPHILS % (AUTO) 0 % (0-1); EOSINOPHILS % (AUTO) 3 % (1-7); LYMPHOCYTES # (AUTO) 1.13 x10^3/uL (1-3.4); LYMPHOCYTES % (AUTO) 14 % (22-44); MD NO; MEAN CORPUSCULAR HEMOGLOBIN 30.2 pg (27.0-34.8); MEAN CORPUSCULAR HGB CONC 32.7 g/dL (32.4-35.8); MEAN CORPUSCULAR VOLUME 92.3 fL (80-100); MEAN PLATELET VOLUME 8.9 fL (7.4-10.4); MONOCYTES # (AUTO) 0.38 x10^3/uL (0.2-0.8); MONOCYTES % (AUTO) 5 % (2-9); NEUTROPHILS # (AUTO) 6.28 x10^3/uL (1.8-6.8); NEUTROPHILS % (AUTO) 79 % (42-75); PLATELET COUNT 245 x10^3/uL (130-400); RED CELL DISTRIBUTION WIDTH 12.2 % (9.6-15.2)
[2019-04-03] MEDS ORDERED: ONDANSETRON ODT 4 MG PO ONE (13:30)
[2019-04-03] MEDS ORDERED: HYDROcodone/APAP 5/325 TABLET PO ONE (13:30)
--- NOTE | 2019-04-03 13:32 | NUR ---
PT AMBULATED TO RESTROOM WITH STEADY GAIT AND PROVIDED URINE SAMPLE. UA COLLECTED AND SENT TO LAB. US AT BEDSIDE.
[2019-04-03 13:41] LABS: ALANINE AMINOTRANSFERASE 24 U/L (12-78); ALBUMIN 3.5 g/dL (3.4-5.0); CALCIUM 9.4 mg/dL (8.5-10.1); CREATININE 0.88 mg/dL (0.55-1.02)
[2019-04-03 13:43] LABS: ALKALINE PHOSPHATASE 71 U/L (45-117); BILIRUBIN,TOTAL 0.3 mg/dL (0.2-1.0); TOTAL PROTEIN 6.9 g/dL (6.4-8.2)
[2019-04-03 13:49] LABS: CULTURE INDICATED? YES; MICROSCOPIC INDICATED
[2019-04-03 13:50] LABS: ANION GAP 4 mmol/L (5-15); CHLORIDE 108 mmol/L (98-107)
[2019-04-03 14:25] VITALS: BP 121/49
--- NOTE | 2019-04-03 14:26 | NUR ---
PT RESTING COMFORTABLY ON GURNEY. STATES PAIN HAS DECREASED AFTER PAIN MEDS. NADN. SPOUSE AT BEDSIDE.
--- NOTE | 2019-04-03 14:27 | NUR ---
ALL RESULTS ARE BACK AT THIS TIME CHART UP FOR RECHECK.
== END 2019-04-03 15:28 | disposition home or self-care (01) ==
LOC: ED 15:10
DX: K80.20 Calculus of gallbladder without cholecystitis without obstruction (principal); J44.9 Chronic obstructive pulmonary disease, unspecified; I10 Essential (primary) hypertension; F17.200 Nicotine dependence, unspecified, uncomplicated
CPT/HCPCS: 36415; 76700; 80053; 81001; 83690; 85025; 87086; 99284; Q0162

== ENCOUNTER → 2019-06-22 | Outpatient (CLI) | payer MEDICARE, BC ==
[~2019-06-22] MED LIST changes: +CELE200C PO; +FLUT1BLS3 IH; +GABA300C10 PO; +OXYC5TAB2 PO; -TRAZ-137 PO; +TRAZ-175 PO; +UMEC1DIS INH
== END | disposition home or self-care (01) ==
LOC: STAR 08:34
PROVIDERS: ATTEND Surgery
DX: Z01.818 Encounter for other preprocedural examination (principal)
CPT/HCPCS: 93005

== ENCOUNTER 2019-06-24 07:19 | Observation (INO) | payer MEDICARE, BC ==
[2019-06-22 09:46] LABS: ALANINE AMINOTRANSFERASE 14 U/L (12-78); ALBUMIN 3.6 g/dL (3.4-5.0); ANION GAP 5 mmol/L (5-15); CALCIUM 9.1 mg/dL (8.5-10.1); CHLORIDE 106 mmol/L (98-107)
[2019-06-22 09:48] LABS: ALKALINE PHOSPHATASE 77 U/L (45-117); BILIRUBIN,TOTAL 0.5 mg/dL (0.2-1.0); CREATININE 0.93 mg/dL (0.55-1.02); TOTAL PROTEIN 6.6 g/dL (6.4-8.2)
[~2019-06-24] VITALS: Ht 162.6 cm; Wt 87.4 kg
[~2019-06-24 07:19] MED LIST changes: -CELE200C PO; +FENTANYL PF 250 MCG/5ML ONE; -GABA300C10 PO; -OXYC5TAB2 PO; -UMEC1DIS INH
[2019-06-24] MEDS ORDERED: KETOROLAC 30 MG/1 ML ONE (07:20)
[2019-06-24] MEDS ORDERED: PHENYLEPHRINE 10 MG/ML ONE (07:21)
[2019-06-24] MEDS ORDERED: GLYCOPYRROLATE 0.2MG/1ML, 5ML ONE (07:22)
[2019-06-24] MEDS ORDERED: ROCURONIUM 10MG/ML,5ML ONE (07:22)
[2019-06-24] MEDS ORDERED: CEFAZOLIN 1,000 MG ONE (07:22)
[2019-06-24] MEDS ORDERED: NEOSTIGMINE 1 MG/ML, 10ML ONE (07:22)
[2019-06-24] MEDS ORDERED: PROPOFOL 10 MG/ML, 20ML ONE (07:22)
[2019-06-24] MEDS ORDERED: ONDANSETRON 2MG/ML, 2ML ONE (07:22)
[2019-06-24] MEDS ORDERED: DEXAMETHASONE 4 MG/ML, 1ML ONE (07:22)
[2019-06-24] MEDS ORDERED: EPINEPHRINE 1 MG/ML, 1ML ONE (07:31)
[2019-06-24] MEDS ORDERED: BUPIVACAINE/PF 0.5% ONE (07:31)
[2019-06-24] MEDS ORDERED: LACTATED RINGERS 1,000 ML IV SCH (07:46)
[2019-06-24] MEDS ORDERED: UMEC1DIS INH (07:49)
[2019-06-24 07:52] VITALS: BP 173/73
[2019-06-24] MEDS ORDERED: GABAPENTIN 300 MG CAPSULE PO ONE (08:00)
[2019-06-24] MEDS ORDERED: ACETAMINOPHEN 500 MG TABLET PO ONE (08:00)
[2019-06-24] MEDS ORDERED: LIDOCAINE-MPF 1%, 2ML INFIL ONE (08:00)
[2019-06-24] MEDS ORDERED: hydrALAzine 20 MG/ML, 1ML IV PRN (09:30)
[2019-06-24] MEDS ORDERED: FENTANYL PF 100 MCG/2ML IV PRN (09:30)
[2019-06-24] MEDS ORDERED: ALBUTEROL SULFATE 2.5 MG/3 ML NPPB PRN ×2 (09:30→13:00)
[2019-06-24] MEDS ORDERED: LABETALOL 5MG/ML, 20ML IV PRN (09:30)
[2019-06-24] MEDS ORDERED: PROMETHAZINE 25 MG/ML, 1ML IV PRN (09:30)
[2019-06-24] MEDS ORDERED: MORPHINE SULFATE 4 MG/ML, 1ML IVPush PRN (09:30)
[2019-06-24] MEDS ORDERED: OXYcodone 5 MG/5 ML ORAL.SOL UDC PO PRN ×2 (09:30→13:30)
[2019-06-24] MEDS ORDERED: ALBUTEROL/IPRATROPIUM 2.5MG/0.5MG, 3 ML NPPB PRN (09:30)
[2019-06-24] MEDS ORDERED: HALOPERIDOL 5 MG/ML IV PRN (09:30)
[2019-06-24] MEDS ORDERED: HYDROmorphone 1 MG/ML, 1ML INJ IVPush PRN (09:30)
[2019-06-24] MEDS ORDERED: MEPERIDINE/PF 25MG/ML,1ML IVPush PRN (09:30)
[2019-06-24] MEDS ORDERED: ALBUTEROL HFA 90 MCG/SPRAY ONE (09:31)
[2019-06-24] MEDS ORDERED: SUGAMMADEX 200 MG/2 ML IVPush ONE (09:35)
[2019-06-24 11:45] VITALS: BP 96/69
[2019-06-24] MEDS ORDERED: TRAZODONE 100MG TABLET PO PRN (13:00)
[2019-06-24] MEDS ORDERED: ONDANSETRON 2MG/ML, 2ML IVPush PRN (13:30)
[2019-06-24] MEDS ORDERED: DIPHENHYDRAMINE 50 MG/ML, 1ML IVPush PRN (13:30)
[2019-06-24 13:53] VITALS: BP 128/60
[2019-06-24] MEDS: ACETAMINOPHEN 500 MG TABLET PO SCH ×2 (14:00→20:39)
[2019-06-24] MEDS: LACTATED RINGERS 1,000 ML IV SCH ×2 (14:06→16:00)
[2019-06-24] MEDS: OXYcodone IR 5MG TABLET PO PRN ×2 (14:16→18:49)
[2019-06-24 18:00] VITALS: BP 128/64
[2019-06-24] MEDS: METOPROLOL TARTRATE 50 MG TAB PO SCH (18:10)
[2019-06-24] MEDS: ALBUTEROL SULFATE 2.5 MG/3 ML NPPB SCH (20:25)
[2019-06-24] MEDS: BUDESONIDE 0.5 MG/2 ML INHA NPPB SCH (20:25)
[2019-06-24] MEDS: GABAPENTIN 300 MG CAPSULE PO SCH (20:39)
[2019-06-24] MEDS ORDERED: CITALOPRAM 20 MG TABLET PO SCH (21:00)
[2019-06-25 00:32] VITALS: BP 126/62
[2019-06-25] MEDS: ACETAMINOPHEN 500 MG TABLET PO SCH ×2 (02:00→08:31)
[2019-06-25 04:20] VITALS: BP 127/62
[2019-06-25] MEDS: LACTATED RINGERS 1,000 ML IV SCH ×2 (05:20→06:20)
[2019-06-25] MEDS ORDERED: PANTOPROZOLE 40MG TABLET PO SCH (06:00)
[2019-06-25] MEDS: METOPROLOL TARTRATE 50 MG TAB PO SCH (06:22)
[2019-06-25] MEDS: ALBUTEROL SULFATE 2.5 MG/3 ML NPPB SCH (07:20)
[2019-06-25] MEDS: BUDESONIDE 0.5 MG/2 ML INHA NPPB SCH (07:20)
[2019-06-25 08:05] VITALS: BP 121/56
[2019-06-25] MEDS: GABAPENTIN 300 MG CAPSULE PO SCH (08:34)
[2019-06-25] MEDS ORDERED: POTASSIUM CHLORIDE 10 MEQ TABLET.ER PO SCH (09:00)
[2019-06-25] MEDS ORDERED: LOSARTAN 100 MG TAB PO SCH (09:00)
[2019-06-25] MEDS ORDERED: ANORO ELLIPTA INH SCH (09:00)
[2019-06-25] MEDS ORDERED: FUROSEMIDE 20 MG TABLET PO SCH (09:00)
[2019-06-25] MEDS ORDERED: OXYC5TAB2 PO (09:47)
[2019-06-25] MEDS ORDERED: GABA300C10 PO (09:48)
[2019-06-25] MEDS ORDERED: CELE200C PO (09:49)
== END 2019-06-25 10:10 | disposition home or self-care (01) ==
LOC: OUT 07:19 → 3WST 11:51 → OUT 20:17 → 3WST 20:18 → DCLOUNGE 06-25 09:52
PROVIDERS: ADMIT Surgery; ATTEND Surgery
DX: K80.10 Calculus of gallbladder with chronic cholecystitis without obstruction (principal); J44.9 Chronic obstructive pulmonary disease, unspecified; I10 Essential (primary) hypertension; F32.9 Major depressive disorder, single episode, unspecified; Z99.81 Dependence on supplemental oxygen; Z87.891 Personal history of nicotine dependence; Z85.118 Personal history of other malignant neoplasm of bronchus and lung; Z79.899 Other long term (current) drug therapy
CPT/HCPCS: 36415; 47562; 80053; 88304; 94640; G0378; J0171; J0690; J1100; J1885; J2370; J2405; J2704; J2710; J3010; J7613; J7626; S0020

== ENCOUNTER → 2019-06-30 | Outpatient (CLI) | payer MEDICARE, BC ==
[~2019-06-30] MED LIST changes: +CELE200C PO; -FENTANYL PF 250 MCG/5ML ONE; +GABA300C10 PO; +OXYC5TAB2 PO; +UMEC1DIS INH
== END | disposition home or self-care (01) ==
LOC: CFH 13:09
PROVIDERS: ATTEND Radiology Radiation Oncology
DX: C34.90 Malignant neoplasm of unspecified part of unspecified bronchus or lung (principal); R91.1 Solitary pulmonary nodule
CPT/HCPCS: 71250

== ENCOUNTER → 2019-07-02 | Outpatient (CLI) | payer MEDICARE, BC | END | disposition home or self-care (01) | LOC: ROC 08:45 | PROVIDERS: ATTEND Radiology Radiation Oncology | DX: C34.11 Malignant neoplasm of upper lobe, right bronchus or lung (principal); R91.1 Solitary pulmonary nodule | CPT/HCPCS: G0463 ==

== ENCOUNTER → 2019-11-30 | Outpatient (CLI) | payer MEDICARE, BC | END | disposition home or self-care (01) | LOC: CFH 10:29 | PROVIDERS: ATTEND Radiology Radiation Oncology | DX: C34.11 Malignant neoplasm of upper lobe, right bronchus or lung (principal) | CPT/HCPCS: 71250 ==

== ENCOUNTER → 2019-12-03 | Outpatient (CLI) | payer MEDICARE, BC | END | disposition home or self-care (01) | LOC: ROC 07:37 | PROVIDERS: ATTEND Radiology Radiation Oncology | DX: C34.11 Malignant neoplasm of upper lobe, right bronchus or lung (principal) | CPT/HCPCS: G0463 ==

== ENCOUNTER → 2020-05-09 | Outpatient (CLI) | payer MEDICARE, BC ==
[~2020-05-09] MED LIST changes: -PANT40TA5 PO; +PANT40TA6 PO
== END | disposition home or self-care (01) ==
LOC: CFH 09:35
PROVIDERS: ATTEND Radiology Radiation Oncology
DX: C34.11 Malignant neoplasm of upper lobe, right bronchus or lung (principal); J43.9 Emphysema, unspecified; J98.4 Other disorders of lung; M51.34 Other intervertebral disc degeneration, thoracic region; M40.204 Unspecified kyphosis, thoracic region; I70.0 Atherosclerosis of aorta
CPT/HCPCS: 71250

== ENCOUNTER 2020-05-12 07:27 | Outpatient (CLI) | payer MEDICARE, BC | END 2020-05-12 23:59 | disposition home or self-care (01) | LOC: ROC 07:27 | PROVIDERS: ATTEND Radiology Radiation Oncology | DX: Z08 Encounter for follow-up examination after completed treatment for malignant neoplasm (principal); Z85.118 Personal history of other malignant neoplasm of bronchus and lung; I10 Essential (primary) hypertension; K21.9 Gastro-esophageal reflux disease without esophagitis; F32.9 Major depressive disorder, single episode, unspecified; J43.9 Emphysema, unspecified | CPT/HCPCS: G0463 ==

== ENCOUNTER → 2020-10-07 | Outpatient (CLI) | payer MEDICARE, BC ==
[~2020-10-07] MED LIST changes: -ASPI-515 PO; +ASPI-963 PO
== END | disposition home or self-care (01) ==
LOC: CFH 09:17
PROVIDERS: ATTEND Radiology Radiation Oncology
DX: C34.11 Malignant neoplasm of upper lobe, right bronchus or lung (principal); R91.1 Solitary pulmonary nodule; J43.9 Emphysema, unspecified; J98.4 Other disorders of lung
CPT/HCPCS: 71250

== ENCOUNTER → 2020-10-12 | Outpatient (CLI) | payer MEDICARE, BC | END | disposition home or self-care (01) | LOC: ROC 08:52 | PROVIDERS: ATTEND Radiology Radiation Oncology | DX: Z08 Encounter for follow-up examination after completed treatment for malignant neoplasm (principal); Z85.118 Personal history of other malignant neoplasm of bronchus and lung; J43.9 Emphysema, unspecified; I10 Essential (primary) hypertension; F32.9 Major depressive disorder, single episode, unspecified | CPT/HCPCS: G0463 ==